=== PATIENT | female | born 1990 | race African-American/Black ===

== ENCOUNTER 2017-03-26 14:11 | Emergency (ER) | payer BC, OTHER ==
[~2017-03-26] VITALS: Ht 165.1 cm; Wt 49.9 kg
[2017-03-26 14:39] VITALS: BP 102/62
[2017-03-26] MEDS ORDERED: CYCL10TA2 PO (15:16)
[2017-03-26] MEDS ORDERED: ACET325T9 PO (15:16)
[2017-03-26] MEDS ORDERED: NAPR500T PO (15:16)
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
== END 2017-03-26 15:24 | disposition home or self-care (01) ==
LOC: ER 14:11
DX: S16.1XXA Strain of muscle, fascia and tendon at neck level, initial encounter (principal); V43.52XA Car driver injured in collision with other type car in traffic accident, initial encounter; Y93.I9 Activity, other involving external motion; Y92.410 Unspecified street and highway as the place of occurrence of the external cause; Y99.8 Other external cause status
CPT/HCPCS: 99283

== ENCOUNTER → 2017-06-19 | Outpatient (CLI) | payer OTHER ==
[~2017-06-19] MED LIST: ACET325T9 PO; CYCL10TA2 PO; NAPR500T PO
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
== END | disposition home or self-care (01) ==
LOC: RAD 11:31
PROVIDERS: ATTEND Physician Assistant
DX: M25.512 Pain in left shoulder (principal)
CPT/HCPCS: 72050